=== PATIENT | female | born 1950 | race Caucasian/White ===

== ENCOUNTER 2017-09-22 07:04 | Day surgery (SDC) | payer MEDICARE, BC ==
[~2017-09-22] VITALS: Ht 170.2 cm; Wt 98.0 kg
--- NOTE | 2017-09-22 07:54 | NUR ---
AFTER ANTIBIOTIC PT STATRTED COUGHING AND VOMITING YELLOW BILE. CHANGED LINENS WASHED FACE AND RINSED MOUTH.
[2017-09-22] MEDS ORDERED: ASPIRIN81 MG PO (08:12)
[2017-09-22] MEDS ORDERED: NEURONTIN100 MG PO (08:13)
[2017-09-22] MEDS ORDERED: HYDROCODON-ACE1 EAC8 PO (08:17)
[2017-09-22] MEDS ORDERED: NEURONTIN300 MG PO (08:18)
[2017-09-22] MEDS ORDERED: LEVOTHYROXINE75 MCG PO (08:18)
[2017-09-22] MEDS ORDERED: LISINOPRIL2.5 MG PO (08:19)
[2017-09-22] MEDS ORDERED: LOVASTATIN20 MG PO (08:19)
[2017-09-22] MEDS ORDERED: EFFEXOR XR150 MG PO (08:20)
[2017-09-22] MEDS ORDERED: METFORMIN HCL1000 M1 PO (08:20)
--- NOTE | 2017-09-22 08:33 | NUR ---
0820 FEELS FINE JUST SLIGHT HEADACHE LIGHTS TURNED DOWN. DENIES SOB ITCHING NO HIVES VISIBLE.
--- NOTE | 2017-09-22 09:53 | NUR ---
09/22/17 0953 Radha Ramírez 0920 PATIENT ARRIVES TO PACU AWAKE, ALERT AND ORIENTED X3. RESP EVEN AND UNLABORED. NC AT 2 LITERS. PASSING GAS. DENIES PAIN OR NAUSEA.
--- NOTE | 2017-09-22 14:18 | OR ---
[facility] [address], [place] [address] Signed DATE OF OPERATION: 09/22/2017 SURGEON: Rosalia Mayberry MD PREOPERATIVE DIAGNOSIS: Colon screening. POSTOPERATIVE DIAGNOSES: Polyps x6 and hyperplasia of cecum. PROCEDURES: Total colonoscopy to cecum with hot snare polypectomy x4, cold morcellation polypectomy x1 and combination polypectomy with hot snare, cold morcellation, submucosal injection of dye x1 and biopsy of cecum. ANESTHESIA: Intravenous sedation; fentanyl 150 mcg, Versed 11 mg. INDICATION: A 67-year-old white woman, patient of Dr. Millard, with known diabetes mellitus. Last colonoscopy greater than 10 years ago, said to have a polyp, which was not excised. She is symptom-free overall. She is admitted to undergo screening colonoscopy. She understood the risks of bleeding, infection, and perforation. FINDINGS: The prep was excellent. Complete colonoscopy was undertaken to the cecum. The mucosa of the cecum looked to be hyperplastic, not particularly adenomatous, but it was biopsied to be sure. There are 6 polyps in total, distributed throughout the colon. One in the mid ascending, another transverse, one at the splenic flexure, one at the proximal descending, another in the mid descending, and another at the rectosigmoid. All were excised. The polyp at 50 cm was complex with a sessile appearance requiring snare polypectomy technique, multiple morcellation bites, and a submucosal dye injection technique was used. DESCRIPTION OF PROCEDURE: The patient was brought to the endoscopy suite and placed in lateral decubitus position given intravenous sedation to the point of slurred speech and nystagmus. Digital rectal examination was normal. Olympus video colonoscope was passed in the rectum and manipulated throughout the colon noting several polyps, some of them large and some of them sessile along the way. Ultimately, the cecum was intubated. The ileocecal valve Electronically Signed By: ROSALIA MAYBERRY MD 09/22/17 1418 PATIENT NAME: JAYSON WARE OPERATIVE REPORT DATE OF : 52 PHYSICIAN: ROSALIA MAYBERRY MD REPORT #: [id number] REPORT IS CONFIDENTIAL AND NOT TO BE RELEASED WITHOUT AUTHORIZATION [facility] [address], [place] [address] Signed appeared normal. The cecum had a hyperplastic appearing mucosa. It was biopsied. Narrow-band imaging did not show typical signs of adenomatous change, but biopsies were obtained to ascertain that. The scope was withdrawn in the mid ascending colon and there was a sessile polyp, which was excised with hot-snare polypectomy technique and passed for pathology. The scope was withdrawn and another similar such polyp was noted in the mid transverse colon. It too was similarly excised. Withdrawal of scope to the splenic flexure showed a smaller such polyp. This was excised with cold morcellation technique and at approximately 60 cm, a sessile polyp, which was small, excised with hot-snare polypectomy technique. In the mid ascending colon, there was a broad-based multilobulated sessile polyp. Mucosal lift technique was deemed appropriate and using [employer] tattoo dye and a sclerotherapy needle, the polyp was lifted from the submucosal area. Using hot snare polypectomy technique, excision was undertaken. The snare could not fully draw through the lesion and took a bit of doing to get the snare off the area. Using cold morcellation technique, it was largely morcellated off. Additional electrocautery having already used both hot and cold rather using cutting and cautery techniques, it was deemed inadvisable for fear of increasing risk of perforation. On that basis, multiple morcellation biopsies were taken. The scope was then withdrawn further and a large pedunculated polyp noted. This was excised with hot snare polypectomy technique as well. Retroflexed view in the rectum was normal. Scope was removed. The procedure was rather prolonged, complicated, given the number of polyps in the complex polyp in the mid descending colon that was accomplished safely so far as can be told. PLAN: Repeat colonoscopy in no later than a year, sooner if adverse findings are noted on pathology, particularly the mid descending polyp. MD JOSE F Tidwell/MODL /[id number] cc: Aguilar Millard DO Electronically Signed By: ROSALIA MAYBERRY MD 09/22/17 1418 PATIENT NAME: JAYSON WARE OPERATIVE REPORT DATE OF : 52 PHYSICIAN: ROSALIA MAYBERRY MD REPORT #: [id number] REPORT IS CONFIDENTIAL AND NOT TO BE RELEASED WITHOUT AUTHORIZATION
== END 2017-09-22 10:15 | disposition home or self-care (01) ==
LOC: DS 07:04 → OPS 07:04 → DS 08:30 → OPS 10:15
PROVIDERS: Surgery
PROC: 0DBM8ZX Excision of Descending Colon, Via Natural or Artificial Opening Endoscopic, Diagnostic (ICD-10-PCS; 2017-09-22)
PROC: 0DBE8ZX Excision of Large Intestine, Via Natural or Artificial Opening Endoscopic, Diagnostic (ICD-10-PCS; 2017-09-22)
PROC: 0DBL8ZX Excision of Transverse Colon, Via Natural or Artificial Opening Endoscopic, Diagnostic (ICD-10-PCS; 2017-09-22)
PROC: 0DBF8ZX Excision of Right Large Intestine, Via Natural or Artificial Opening Endoscopic, Diagnostic (ICD-10-PCS; 2017-09-22)
PROC: 0DBG8ZX Excision of Left Large Intestine, Via Natural or Artificial Opening Endoscopic, Diagnostic (ICD-10-PCS; 2017-09-22)
PROC: 3E0H8GC Introduction of Other Therapeutic Substance into Lower GI, Via Natural or Artificial Opening Endoscopic (ICD-10-PCS; 2017-09-22)
PROC: 0DBH8ZX Excision of Cecum, Via Natural or Artificial Opening Endoscopic, Diagnostic (ICD-10-PCS; principal; 2017-09-22 08:30)
DX: Z12.11 Encounter for screening for malignant neoplasm of colon (principal); D12.2 Benign neoplasm of ascending colon; D12.3 Benign neoplasm of transverse colon; D12.4 Benign neoplasm of descending colon; D12.6 Benign neoplasm of colon, unspecified; K52.9 Noninfective gastroenteritis and colitis, unspecified; K21.9 Gastro-esophageal reflux disease without esophagitis; E11.9 Type 2 diabetes mellitus without complications; Z96.642 Presence of left artificial hip joint
CPT/HCPCS: 88305; 99153; G0500; J0694; J2250; J3010; J7120